=== PATIENT | male | born 1970 | race Caucasian/White ===

== ENCOUNTER 2021-01-27 02:57 | Outpatient (CLI) | payer BC, SELFPAY ==
[2021-01-27 08:57] LABS: Cholesterol 206 mg/dL (<200)
[2021-01-27 08:59] LABS: ALT 49 U/L (16-63); AST 29 U/L (15-37); Alkaline Phosphatase 47 U/L (46-116); Anion Gap 9.2 mmol/L (3-11); BUN 14 mg/dL (7-18); Bilirubin, Total 0.9 mg/dL (0.2-1.0); CO2 30.8 mmol/L (21.0-32.0); CREATININE 0.9 mg/dL (0.70-1.30); Calcium 8.1 mg/dL (8.5-10.1); Chloride 102 mmol/L (98-107); Glucose 105 mg/dL (74-106); Potassium 3.3 mmol/L (3.5-5.1); Sodium 142 mmol/L (136-145); Total Protein 7.3 g/dL (6.4-8.2)
== END 2021-01-27 02:58 | disposition home or self-care (01) ==
LOC: LBO 02:57
DX: Z00.00 Encounter for general adult medical examination without abnormal findings (principal); Z13.220 Encounter for screening for lipoid disorders
CPT/HCPCS: 36415; 80053; 82465

== ENCOUNTER 2021-06-02 12:10 | Day surgery (SDC) | payer BC, SELFPAY ==
--- NOTE | 2021-06-02 | DI.CT_ITS ---
Exam(s) CT ABDOMEN PELVIS W EXAM: CT ABDOMEN PELVIS W CLINICAL HISTORY: anal mass. TECHNIQUE: Imaging Protocol: Axial computed tomography images with coronal and sagittal reformatted images were created and reviewed CONTRAST MATERIAL: Intravenous: Omnipaque 100cc Oral: None COMPARISON: No exams were available for comparison FINDINGS: VISUALIZED LUNG BASES: No nodules nor pleural effusions evident. ABDOMEN: There is mild circumferential thickening of the distal esophagus at the GE junction. May be signific ant. There is no hiatal hernia evident. No evidence of varices at this level. There is no ascites LIVER: Liver is hypodense implying steatosis. In the upper right hepatic lobe there is a solitary 1. 4 by 1.0 cm enhancing finding which I suspect is a possible small hemangioma. GALLBLADDER/BILIARY: Slightly distended. No gallstones seen. No gallbladder wall edema. CBD is not dilated. PANCREAS: No evidence of pancreatic mass nor dilatation of the pancreatic duct. LYMPH NODES: There are some prominent retroperitoneal lymph nodes. the largest of these interposed b etween the portal vein and ivc and measuring 3.8 by 2 cm. there is also a 1.8 by 1.3 cm lymph node a navin the pancreatic neck between the splenic and common hepatic arteries. There does not appear to b e an obvious pancreatic mass. SPLEEN: Spleen is not enlarged. No obvious intrasplenic lesions. 2.2 x 2.1 cm benign splenule is no aliza medial to the spleen. The splenic and portal veins are patent. ADRENALS: There are no significant adrenal masses. KIDNEYS:No cysts evident. No solid renal masses. No calculi nor hydronephrosis.. ABDOMINAL AORTA: Abdominal aorta is not enlarged. There is no para-aortic adenopathy ABDOMINAL WALL: Anterior abdominal wall umbilical fat containing hernia with benign appearance. Does not contain bowel loops therein. GI: There is no evidence of bowel obstruction, free air, nor abscess. Lymph nodes: PELVIS: GI: No evidence of appendicitis.No evidence of sigmoid diverticulitis. LYMPH NODES: There is no intrapelvic nor inguinal adenopathy. REPRODUCTIVE: Prostate size upper normal. Seminal vesicles unremarkable. No obturator adenopathy. URINARY BLADDER: No calculi nor obvious masses evident OSSEOUS: No significant osseous lesions. Sacroiliac joints appear unremarkable. IMPRESSION: 1. There are multiple prominent retroperitoneal lymph nodes as described above. Spleen size is upper normal. Nevertheless cannot rule out the possibility of lymphoma here. There is no prominent para- aortic adenopathy. There is no significant intrapelvic adenopathy. 2. Hepatic steatosis. There is a 14 x 10 millimeter enhancing lesion in the liver which are suspect is probably a small hemangioma. RADIATION DOSE DELIVERED: 1,578.6mGy.cm Total DLP DATA REPOSITORY: All CT scans at this facility are submitted to the National Radiology Data Registry (NRDR) Dose Index Registry (DIR) with the [employer] ([employer]). RADIATION OPTIMIZATION: All CT scans at this facility use at least one of these dose optimization te chniques: automated exposure control; mA and/or kV adjustment per patient size (includes targeted exa ms where dose is matched to clinical indication); or iterative reconstruction.
[2021-06-02 12:15] VITALS: BP 156/86; PULSE 76; RESP 18; TEMP 36.3; O2SAT 97
[2021-06-02] MEDS: Lactated Ringers 1,000 ML 80 ML IV (12:46)
--- NOTE | 2021-06-02 13:12 | W.ANESPRE ---
General Info Date of Service Date Performed: 06/02/21 Height: 5 ft 8 in Weight: 121.5 kg Body Mass Index (BMI): 40.7 Surgical Procedure: Operation Date: 06/02/21 12:50 Proposed Procedures Side Surgeon leida Chan, DO Meds Allergies and Home Medications Allergies Allergy/AdvReac Type Severity Reaction Status Date / Time No Known Allergies Allergy Verified 06/02/21 12:24 Home Medication Medication Instructions Recorded potassium chloride 10 mEq 10 meq PO DAILY #30 tab 02/14/21 tablet,extended release hydrochlorothiazide 25 mg tablet 25 mg PO QAM #90 tab 05/16/21 amlodipine 10 mg tablet 10 mg PO DAILY #90 tab 05/17/21 lisinopril 30 mg tablet 30 mg PO DAILY #90 tab 05/17/21 bisacodyl 5 mg tablet,delayed 5 mg PO ONCE #4 tab 05/26/21 release polyethylene glycol 3350 17 238 g PO ONCE #238 g 05/26/21 gram/dose oral powder Current Visit Medications: Current Medications Generic Name Dose Route Start Last Admin Trade Name Freq PRN Reason Stop Dose Admin Hyoscyamine Sulfate 0.125 mg 06/02/21 10:41 Hyoscyamine 0.125 Mg Sl/Oral/Chew SL DIRECTED PRN Ringer's Solution 1,000 mls @ 80 mls/hr 06/02/21 06:00 06/02/21 12:46 IV 07/01/21 23:59 80 mls/hr INFUSION CLARITZA Administration IV Miscellaneous Supplies 1 each 06/02/21 06:00 Iv Access IV 07/01/21 23:59 DIRECTED CLARITZA Ondansetron HCl 4 mg 06/02/21 10:41 Ondansetron 4 Mg/2 Ml Vial IVP Q4H PRN PRN Nausea / Vomiting Sodium Chloride 0 ml 06/02/21 06:00 Normal Saline Flush 10 Ml Syr IV 07/01/21 23:59 PRN PRN Sodium Chloride 0 ml 06/02/21 06:00 Normal Saline 10 Ml Vial IJ 07/01/21 23:59 DIRECTED PRN Sterile Water 0 ml 06/02/21 06:00 Water,Injection,Sterile 10 Ml Vial IJ 07/01/21 23:59 DIRECTED PRN PFSH Active Problems Active Problems: Problem Status Onset Code Seasonal allergies J30.2 Hypokalemia E87.6 SRINIVASA on CPAP G47.33, Z99.89 Screening for skin condition Feeling grief F43.21 Skin cancer screening Z12.83 Colon cancer screening Z12.11 Screening cholesterol level Z13.220 Increased body mass index (BMI) R63.8 Essential hypertension I10 Annual physical exam Z00.00 Medical History Medical History (Updated 06/02/21 @ 12:23 by Sneha Heredia) Annual physical exam Colon cancer screening Essential hypertension Feeling grief Fracture, ankle Hypokalemia Increased body mass index (BMI) SRINIVASA on CPAP Started about 2011 - gets about 4 hr/night Patient new to facility Screening cholesterol level Screening for skin condition Seasonal allergies Skin cancer screening Tobacco Smoking/Tobacco Use Status: Former Tobacco Use Passive smoking exposure: No Alcohol Alcohol Intake: current Alcohol intake frequency: holidays/special occasions only Alcohol type: beer and wine Substance Use Substance use: Rarely Substance use type: marijuana Counseling given: No Counseling provided: none Vital Signs and Lab Results Vital Signs Most Recent Vital Signs in EMR: Most Recent Vital Signs Temp Pulse Resp BP Pulse Ox 36.3 C L 76 18 156/86 H 97 06/02/21 12:15 06/02/21 12:15 06/02/21 12:15 06/02/21 12:15 06/02/21 12:15 Lab Results Blood Type / Crossmatch: No Data to Display Complete Blood Count: No Data to Display Complete Metabolic Panel: No Data to Display Liver Function Panel: No Data to Display Coagulation Panel: No Data to Display Cardiac Panel: No Data to Display Arterial Blood Gas: No Data to Display Venous Blood Gas: No Data to Display Pancreas Panel: No Data to Display Thyroid Panel: No Data to Display Infectious Disease: No Data to Display Blood Cultures: No Data to Display Toxicology Panel: No Data to Display Anesthesia Assessment and Plan Anesthesia History Personal History: No History of Anesthesia Complications Family History: No Family History of Anesthesia Complications Exercise Tolerance Exercise Tolerance: Metabolic Equivalents>4 Pertinent Negatives Pertinent Negatives: No Symptoms of GERD Cardiac & Pulmonary Exam Cardiac Exam: Normal S1/S2 Heart Sounds Pulmonary Exam: Clear Bilateral Breath Sounds Airway Exam Known Difficult Airway: No Mallampati Class: 2 Mouth Opening: Normal (> 3cm) Thyromental Distance: Less than 3 cm Neck Range of Motion: Full ROM Neck Circumference: Thick Teeth Condition: Normal Dentition ASA Classification ASA Score: ASA 3 Emergency Case?: No NPO Status NPO Status: NPO Clears >2 hours, Solids >8 hours Anesthesia Plan Resuscitation Status: Full Code Anesthesia Technique: General Anesthesia Airway Planned: Natural Airway Monitors Used: Standard Monitors
[2021-06-02 13:26] VITALS: BMI 40.7
--- NOTE | 2021-06-02 14:35 | BOWEL_PTH ---
PATIENT: Froy Aguilar LOC: [facility] U#:[id number] AGE/SX: 51/M ROOM: RE06/02/[address]: Maliha Chan : 1970 BED: DIS: 06/02/2021 SPEC #: [id number] RECD: 06/02/21 16:46 STATUS: AMY REAmbika #: [id number] MYA: 06/02/21 14:[address]: Maliha Chan DEPT: Surgical Specimen RECD BY: Charisma Pepper ENTERED: 06/02/21 16:47 SP TYPE: Bowel OTHR DR: Suzy Hines APRN Tissues: 1 - BIOPSY BOWEL 2 - BIOPSY BOWEL 3 - BIOPSY BOWEL 4 - BIOPSY BOWEL 5 - BIOPSY BOWEL Procedures: GROSS AND MICRO LEVEL 4 Comments: [id number]
[2021-06-02] MEDS: Normal Saline Flush 10 ML SYR (14:41)
[2021-06-02 15:15] VITALS: BP 151/85; PULSE 72; RESP 16; TEMP 36.6; O2SAT 97
--- NOTE | 2021-06-02 15:15 | PDOC.DSDIS_ITS ---
Discharge Plan Disposition Patient Disposition: HOME Condition: Good Discharge Details Reason For Visit: colon scope Attending Provider: Maliha Chan Primary Care Provider: Suzy Hines Home Meds and New Rx's Prescriptions: New dibucaine 1 % ointment 1 applic NH QID PRN (Reason: rectal discomfort) Qty: 56 RF: 3 Continued potassium chloride 10 mEq tablet extended release 10 meq PO DAILY Qty: 30 RF: 1 hydrochlorothiazide 25 mg tablet 25 mg PO QAM Qty: 90 RF: 2 amlodipine 10 mg tablet 10 mg PO DAILY Qty: 90 RF: 3 lisinopril 30 mg tablet 30 mg PO DAILY Qty: 90 RF: 3 Discontinued polyethylene glycol 3350 17 gram/dose powder 238 g PO ONCE Qty: 238 RF: 0 bisacodyl [Dulcolax (bisacodyl)] 5 mg tablet,delayed release (DR/EC) 5 mg PO ONCE Qty: 4 RF: 0 Discharge Instructions Additional Instructions: DSU Colonoscopy Post- Op Instructions Instructions for Everyone who is given Anesthesia: For your safety, please do the following for the next twenty-four (24) hours: *Do Not operate a motor vehicle (car, truck, motorcycle, etc.) *Do Not drink alcoholic beverages or use any recreational drugs for the first 24 hours or while taking pain medications. The medications in your body may have a reaction that can be dangerous. *Do Not make any important decisions or sign any important papers. Findings: x3 polyps diverticula anal mass -No NSAID's/aspirin x5 days Home Care Instructions after Rectal Surgery Pain control: Tylenol 1000mg by mouth every 8 hours. Take pain meds continuously for the first 72hrs. After 72hrs, you can take as needed if you are having pain. Use dibucaine cream- topical for pain releif. Apply every 4hrs as needed for pain. How to prevent constipation: The first bowel movement after surgery will be painful. Do not let yourself get constipated. Stay on a stool softener for the first two weeks after surgery. It is recommended that you use a fiber supplement (Metamucil, Citrucel) daily (1 tablespoon in 8 oz of water). If you do not have a bowel movement daily, use Milk of Magnesia or Miralax. You may have bleeding or drainage after rectal surgery; especially when you move your bowels. Use a sanitary napkin to collect the discharge. If you are passing large clots or having to change the pad more than every 4 hours, call the clinic or go to the ER. You may experience spasms in the rectal muscles. This is normal after surgery and last for about two weeks. They can become more intense with bowel movements. The best remedy is to soak in a bathtub of plain warm water- no Epsom salts, essential oil or soap. It takes about 10 minutes further the spasm to stop. You may want to do this after BM as well. It is ok to shower. Avoid soap on the surgical area. Use a pillow to sit on. Follow a mild bland diet. Avoid alcohol, spicy food, citrus, and tomatoes. Avoid strenuous activity (running, jogging, and power walking, swimming, weight lifting) for two weeks. No lifting over 20 pounds for 2 weeks. Follow up: Dr. Chan 06/13 3pm. I will have the path reports adn we will go over all results and formulate a treatment plan. 2. After you arrive home you may have a light meal and return to your normal diet as you can tolerate it without feeling sick to your stomach. 3. You may have a bloated, gaseous feeling in your belly (abdomen) after a colonoscopy. Passing gas and belching will help. Walking or lying down on your left side with your knees flexed may relieve the discomfort. Call the office at [phone] (Office) or [phone] (Hospital) right away if you notice any of the following: a.Vomiting of blood or ?coffee ground stools?. b.Rectal bleeding 1Tbsp, blood clots or continuous bleeding. c.Severe belly (abdominal) pain. d.A hard distended belly (abdomen) and an inability to pass gas. 4. Please don?t expect to have a normal BM (bowel movement) for 2-3 days after your procedure. 5. If there are questions regarding the findings of your procedure, please contact your doctor 6. If you are unable to contact your doctor with a problem, contact the hospital at [phone]. 7. Continue all your regular medications unless directed otherwise. I understand the above instructions and have no questions. Signature of Patient or Adult Escort Name of Responsible Adult Escort Signature of Nurse Date/Time Stand Alone Forms: Eran Vaughn (MIGUELANGELU) Activity:: see above Diet:: see above Discharge Orders Discharge Orders: Discharge Order (Routine); Ordered 06/02/21 Ordered By: Maliha Chan DS: Diagnosis Discharge Diagnosis (1) Adenomatous polyps: Status: Acute (2) Diverticula of colon: Status: Acute (3) Bleeding external hemorrhoids: Status: Acute (4) Mass of anus: Status: Acute
[2021-06-02] MEDS: Breeza Beverage 473 ML BTL PO ×2 (15:21→15:22)
[2021-06-02] MEDS: Omnipaque 350 MG/ML 50 ML BTL PO (15:21)
--- NOTE | 2021-06-02 15:21 | W.ANESPOSTOP ---
Postoperative Evaluation Date, Time and Location Date Performed: 06/02/21 Time Performed: 15:22 Patient Location: Day Surgery Unit Vital Signs Most Recent Manually Entered Vital Signs: Adult Blood Pressure: 151/85 Heart Rate: 75 Respirations: 18 Oxygen Saturation (%): 94 Temperature (C): 36.6 C Pain Score (0-10 Scale): 3 Assessment Mental Status: Arousable with meaningful communication Airway and Respiratory Function: Patent airway with normal (patient baseline) respiratory exam Cardiovascular Function: Hemodynamically Stable Hydration Status: Adequately Hydrated Nausea & Vomiting: No Nausea or Vomiting Pain: Pain is tolerable per patient Peripheral Nerve Block: Patient did not receive a nerve block
[2021-06-02 15:22] VITALS: BP 151/85; PULSE 75; RESP 18; TEMPC 36.6; O2SAT 94
[2021-06-02 15:50] VITALS: BP 178/83; PULSE 64; RESP 18; TEMP 36.2; O2SAT 99
[2021-06-02 16:43] LABS: Abs Immature Grans 0.02 10^3/uL (0.0-0.06); Absolute Basophil Count 0.03 10^3/uL (0.0-0.2); Absolute Eosinophil Count 0.24 10^3/uL (0.0-0.7); Absolute Lymphocyte Count 1.75 10^3/uL (1.2-3.4); Absolute Monocyte Count 0.61 10^3/uL (0.1-0.8); Basophils % 0.3; Eosinophils % 2.7; HCT 38.1 % (40.0-50.0); HGB 13.3 g/dL (13.5-17.5); Immature Grans % 0.2; Lymphocytes % 19.3; MCH 29.4 pg (27.0-33.0); MCHC 34.9 % (32.0-36.0); MCV 84.1 fL (80-95); MPV 10.6 fL (8.0-11.0); Monocytes % 6.7; Neutrophils % 70.8; Nucleated RBC 0 %; Platelet Count 229 10^3/uL (130-400); RBC 4.53 10^6/uL (4.36-5.78); RDW 13.6 % (11.8-14.1); WBC 9.05 10^3/uL (4.4-10.8)
[2021-06-02 16:57] LABS: ALT 48 U/L (16-63); AST 28 U/L (15-37); Albumin 4.1 g/dL (3.4-5.0); Alkaline Phosphatase 41 U/L (46-116); Anion Gap 6.2 mmol/L (3-11); BUN 21 mg/dL (7-18); Bilirubin, Total 0.8 mg/dL (0.2-1.0); CO2 31.8 mmol/L (21.0-32.0); CREATININE 1.2 mg/dL (0.70-1.30); Calcium 8.8 mg/dL (8.5-10.1); Chloride 99 mmol/L (98-107); Glucose 122 mg/dL (74-106); Sodium 137 mmol/L (136-145); Total Protein 7.8 g/dL (6.4-8.2)
[2021-06-02 17:00] LABS: Potassium 2.8 mmol/L (3.5-5.1)
[2021-06-02] MEDS: Normal Saline - Diluent 50 ML VIAL IV (17:04)
[2021-06-02] MEDS: Omnipaque 350 MG/ML 100 ML BTL IJ (17:04)
[2021-06-02] MEDS: Normal Saline Flush 10 ML SYR IV (17:05)
[2021-06-02] MEDS: Acetaminophen 500 MG TAB 1000 MG PO (17:28)
--- NOTE | 2021-06-02 17:40 | DI.VRAD_ITS ---
Addendum created by Rebecca Pinto MD on 06/02/2021 6:47:02 PM EDT: THIS REPORT CONTAINS FINDINGS THAT MAY BE CRITICAL TO PATIENT CARE. The findings were verbally communicated via telephone conference with Maliha Chan at 6:46 PM EDT on 06/02/2021. The findings were acknowledged and understood. Initial report created on 06/02/2021 5:40:05 PM EDT: PROCEDURE INFORMATION: Exam: CT Abdomen And Pelvis With Contrast Exam date and time: 06/02/2021 3:16 PM Age: 51 years old Clinical indication: Other: Anal mass seen on colonoscopy today 06/02. ; Prior surgery; Surgery date: Post-operative (0-2 days); Surgery type: Colonoscopy 06/02 TECHNIQUE: Imaging protocol: Computed tomography of the abdomen and pelvis with contrast. Radiation optimization: All CT scans at this facility use at least one of these dose optimization techniques: automated exposure control; mA and/or kV adjustment per patient size (includes targeted exams where dose is matched to clinical indication); or iterative reconstruction. Contrast material: OMNIPAQUE 350; Contrast volume: 100 ml; Contrast route: INTRAVENOUS (IV); Other contrast: Oral, Omni 350, 50 ml + Breeza 800 ml, Omni 350, 50 ml + Breeza 800 ml; COMPARISON: No relevant prior studies available. FINDINGS: Mediastinal space: Some wall prominence to the distal esophagus which should be correlated with any concern for esophagitis. Liver: Hepatic steatosis. 1.5 cm rim enhancing lesion in the superior aspect of the liver, series 5, image 130; series 6, image 55. Small enhancing lesion in the superior aspect of the liver, 1 cm, series 4, image 17; series 6, image 77. Possible areas of focal fatty sparing along the gallbladder fossa. Gallbladder and bile ducts: No calcified gallstones identified. Pancreas: Normal pancreas. Spleen: Homogeneous spleen. Adrenal glands: Normal adrenal glands. Kidneys and ureters: No hydronephrosis. Stomach and bowel: No evidence of bowel obstruction. There is some wall prominence to the rectum which can be seen with underdistention or proctitis/pathology. The anal region is not well assessed secondary to underdistention. Appendix: Normal appendix. Intraperitoneal space: No free air. Vasculature: No abdominal aortic aneurysm. Lymph nodes: Prominent/enlarged periportal/peripancreatic lymph nodes measuring up to 1.2 cm in short axis. Urinary bladder: Urinary bladder wall prominence. This can be seen with infection or underdistention. Reproductive: Unremarkable as visualized. Bones/joints: Skeletal degenerative changes. Scoliosis. Soft tissues: The anterior subcutaneous soft tissues are incompletely imaged because they were not included in the field of view. Small fat containing umbilical hernia. IMPRESSION: 1. There is some wall prominence to the rectum which can be seen with underdistention or proctitis/pathology. The anal region is not well assessed secondary to underdistention. 2. Indeterminate enhancing lesions in the liver, worrisome for disease involvement. MRI, hepatic mass protocol, recommended for further evaluation. Given that one is ring shaped in appearance, findings should also be correlated with any concern for abscess. 3. Lymph node prominence/enlargement in the upper abdomen. Disease involvement not excluded. 4. Some wall prominence to the distal esophagus which should be correlated with any concern for esophagitis or other abnormality. Urinary bladder wall prominence which can be seen with infection or underdistention. Hepatic steatosis. Other findings/details as above. Dictated and Authenticated by: Rebecca Pinto MD. Ordering:MARIO Jett MD
--- NOTE | 2021-06-02 23:44 | W.COLOREPORT ---
Date of service: 06/02/21 Time of Service: 15:00 Colonoscopy Report Date of procedure: 06/02/21 Pre-op diagnosis general: crc screen Post-op diagnosis procedure note: other (ext hemorrhoids/rectal-anal mass (malig vs polyps) diverticular dx.) Surgeon: Maliha Chan Anesthesia Type: General:No Airway Estimated blood loss (mL): 2 Pathology: other Complications: None Disposition: same day Prep: Miralax/Dulcolax Retraction Time: 20cm Procedure Description: After informed consent was obtained the patient was taken to the procedure room and placed in a left decubitous position. Monitors were applied and a time out was done. The patients name, date of , procedure, allergies to medications and metal in their body was reviewed. The patient was then sedated. Once sedated and comfortable a rectal exam was done. External exam shows ext hemorrhoids (they are not inflammed or thrombosed) & multiple tags. Internal exam revealed a normal sphincter, there is a mass present- 5oclock position. The scope was then introduced and retrofelexed. Mass at the anal-rectal junction (pt has significant pain after the polyp removal). The scope was then advanced to the cecum w/out difficulty. The TI and appendiceal orifice were identified. The prep was adequate- there was adherent stool to the colon coelho- this is extensively lavged, . The scope was then slowly retracted over 20. minutes back into the rectum. He at 90 cm he has a flat 0.8 cm polyp. This was injected with saline to raise it and then removed with a combination of a hot snare and hot forceps. All specimens are retrieved and no bleeding is noted. A clip was placed across the defect. At 60 cm he has a 1 cm polyp that is on a small stalk. This is removed with a hot snare. In has not 2 additional 5 mm flat polyps at 40 cm and in the rectum. These are removed with cold biting forcep. He has a anal lesion that is discovered by BRITTANY, and seen upon retroflexion. It definitely has the characteristics of adenomatous polyp, and because of the size I would be concerned that there is a malignancy within this. It Is very painful for the patient to have this removed indicating that we are near the sphincters and the nerves. I was not able to remove the entirety of the lesion. When I did remove is about 1.5 cm, using a hot snare. this is sent out for pathological evaluation. There is no bleeding noted. The scope was removed and the patient was woken up and taken back to Same day surgery in stable condition. The patient tolerated the procedure well and there were no immediate complications. Follow up: The patient should follow up in my office on June 13 and we will review the CT and biopsy findings.
[2021-06-05 09:24] LABS: CEA <2.0 ng/mL (See Note)
== END 2021-06-02 17:50 | disposition home or self-care (01) ==
PROVIDERS: Visit Provider Surgery
PROC: 0DJD8ZZ Inspection of Lower Intestinal Tract, Via Natural or Artificial Opening Endoscopic (ICD-10-PCS; CPT 45378; principal; 2021-06-02 12:45)
DX: Z12.11 Encounter for screening for malignant neoplasm of colon (principal); D12.0 Benign neoplasm of cecum; D12.6 Benign neoplasm of colon, unspecified; K62.9 Disease of anus and rectum, unspecified; K62.1 Rectal polyp; A63.0 Anogenital (venereal) warts; K57.30 Diverticulosis of large intestine without perforation or abscess without bleeding; K64.4 Residual hemorrhoidal skin tags; K63.5 Polyp of colon; G47.33 Obstructive sleep apnea (adult) (pediatric); I10 Essential (primary) hypertension
CPT/HCPCS: 45385; 45381; 45380; 80053; 88305; 74177; 82378; 85025; J2001; J2704; J3490; Q9967

== ENCOUNTER 2021-06-22 01:50 | Outpatient (CLI) | payer BC, SELFPAY ==
--- NOTE | 2021-06-22 15:07 | DI.US_ITS ---
APPROVED REPORT EXAM: Comprehensive 2D, Doppler, and color-flow Echocardiogram Patient Location: Out-Patient Manager Exchange: Kirstie Owens RDCS (AE) Indications: Pre operative, Elevated lipid, HTN Other Information Study Quality: Adequate Conclusion Left Ventricle : The left ventricle is normal size. The left ventricular systolic function is normal. The left ventricular ejection fraction is within the normal range. Mild concentric left ventricular hypertrophy. There is normal LV segmental wall motion. The left ventricular diastolic function is nor mal. LVEF is 60-65%. Right Ventricle : The right ventricle is normal size. The right ventricular systolic function is norm al. Atria : The left atrium size is normal. The right atrium size is normal. Tricuspid Valve : The tricuspid valve is normal in structure. Trace tricuspid regurgitation. Unable t o assess PA pressure. There is no tricuspid valve stenosis. Great Vessels : The aortic root is normal in size. The ascending aorta is normal in size. Aortic arch is normal in caliber. IVC is normal in size and collapses >50% with inspiration. Wall motion Left Ventricle The left ventricle is normal size. The left ventricular systolic function is normal. The left ventric ular ejection fraction is within the normal range. Mild concentric left ventricular hypertrophy. Ther e is normal LV segmental wall motion. The left ventricular diastolic function is normal. There is no ventricular septal defect visualized. LVEF is 60-65%. Right Ventricle The right ventricle is normal size. The right ventricular systolic function is normal. Atria The left atrium size is normal. The right atrium size is normal. The interatrial septum is intact wit h no evidence for an atrial septal defect. Aortic Valve The aortic valve is normal in structure. There is no aortic valvular stenosis. No aortic regurgitatio n is present. Mitral Valve The mitral valve is normal in structure. No evidence of mitral valve stenosis. Trace mitral regurgita tion. Tricuspid Valve The tricuspid valve is normal in structure. There is no tricuspid valve stenosis. Trace tricuspid reg urgitation. Unable to assess PA pressure. Pulmonic Valve The pulmonary valve is normal in structure. There is no pulmonic valvular stenosis. There is no pulmo junior valvular regurgitation. Great Vessels The aortic root is normal in size. The ascending aorta is normal in size. Aortic arch is normal in ca liber. IVC is normal in size and collapses >50% with inspiration. Pericardium There is no pericardial effusion. 2D Dimensions IVSD d PLAX 1.23 cm M: 0.6-1.2 LV Vol A2C d MOD 119.0 mL LVPW d PLAX 1.22 cm M: 0.6 - 1.2 LV Vol A4C d MOD 130.8 mL LVID d PLAX 4.62 cm M: 4.2 - 5.8 LA vol/ BSA A2C s A-L 28.9 mL/m2 LVDs 3.15 cm M: 2.5 - 4.0 LA vol/ BSA A4C s A-L 22.2 mL/m2 Ao Root d 2.67 cm M: 3.1 - 3.7 LA Vol/ BSA Biplane s A-L 26.0 mL/m2 RA Area A4C 14.52 cm2 LA Area A4C s MOD 17.92 cm2 RA Vol/ BSA A4C s A-L 13.2 mL/m2 LA Area A2C s MOD 20.94 cm2 Ao Asc Diam d 3.23 cm M: 2.6 - 3.4 LV EF A4C MOD 65.9 % LV EF Teichholz 59.1 % LV EF A2C MOD 59.7 % LVEF ([facility]) 59.87 % M: 52 - 72 LV EF Biplane MOD 59.9 % LV Volume 91.59 mL M: 62 - 150 SV 76.47 mL LV Volume Index 39.82 mL/m2 M: 34 - 74 SV Index 33.20 mL/m2 LV Vol Biplane MOD 127.7 mL FS 31.25 % M-Mode TAPSE 3.20 cm (M/F) >1.7 LV Diastology MV E' medial 0.053 (>0.07 m/s) E/A Ratio 0.8 LV E/e MED 11.80 (<14) MV E Vmax 0.62 (0.4-1.3 m/s) MV E' lateral 0.090 (>0.1 m/s) MV A Vmax 0.80 (0.4-1.3 m/s) LV E/e LAT 6.85 (<14) MV E/A Ratio 0.76 MV E/E' medial 11.81 MV E/E' lateral 6.86 Aortic Valve LVOT Area 2.97 cm2 AoV Area Vmax 2.56 cm2 LVOT Vmax 1.35 m/s AoV Area/ BSA (Vmax) 1.11 cm2/m2 LVOT Mean Inocente. 0.78 m/s BRIANDA Mean Inocente. 2.12 cm2 LVOT Peak Grad 7.3 mmHg BRIANDA Mean Inocente. Index 0.92 cm2/m2 LVOT Mean Grad 3.0 mmHg LVOT VTI 0.271 m LVOT Diam s 1.90 cm AoV Vmax 1.56 m/s Velocity Ratio 0.86 AoV Mean Inocnete. 1.09 m/s AoV Peak Grad 9.7 mmHg LVOT SV 80.71 mL AoV Mean Grad 5.3 mmHg AoV VTI 0.295 m AoV Area VTI 2.74 cm2 AoV Area/ BSA (VTI) 1.19 cm/m2 Mitral Valve MV DT 322 (160-240 msec) MV PHT 93 msec MV Area PHT 2.36 cm2 MV VTI 0.264 m MV Area VTI 3.06 (4.0-6.0 cm2) Pulmonary Valve PV Vmax 1.74 (0.5-1.5 m/s) RVOT Peak Gr. 4.29 mmHg PV Peak Grad 12.2 mmHg RVOT Mean Gr. 1.80 mmHg PV Mean Grad 5.0 mmHg RVOT VTI 0.203 m PV VTI 0.280 m RVOT Vmax 1.04 m/s
== END 2021-06-22 02:10 ==
PROVIDERS: Visit Provider Surgery
DX: G47.33 Obstructive sleep apnea (adult) (pediatric) (principal); I10 Essential (primary) hypertension; K62.89 Other specified diseases of anus and rectum; R63.8 Other symptoms and signs concerning food and fluid intake; Z99.89 Dependence on other enabling machines and devices; Z01.818 Encounter for other preprocedural examination; E78.5 Hyperlipidemia, unspecified; E66.9 Obesity, unspecified
CPT/HCPCS: 93306

== ENCOUNTER 2021-07-03 02:46 | Outpatient (CLI) | payer BC, SELFPAY ==
[2021-07-03 12:28] LABS: Source Nasal/Nares
[2021-07-03 15:35] LABS: COVID-19 PCR Negative (Negative)
== END 2021-07-03 02:47 | disposition home or self-care (01) ==
LOC: LBO 02:46
PROVIDERS: Visit Provider Surgery
DX: Z20.822 Contact with and (suspected) exposure to COVID-19 (principal); Z01.818 Encounter for other preprocedural examination
CPT/HCPCS: 87635

== ENCOUNTER 2021-07-04 07:34 | Day surgery (SDC) | payer BC, SELFPAY ==
[2021-07-04] VITALS (7 sets, daily range): BP systolic 151–180; BP diastolic 65–90; PULSE 62–75; RESP 14–18; TEMP 36.2–36.8; O2SAT 96–100; BMI 42.4
--- NOTE | 2021-07-04 04:53 | W.ANESPRE ---
General Info Date of Service Date Performed: 07/04/21 Height: 5 ft 8 in Weight: 126.552 kg Body Mass Index (BMI): 42.4 Surgical Procedure: Operation Date: 07/04/21 09:55 Proposed Procedures Side Surgeon p Fulguration of anal condyloma Maliha Chan, Meds Allergies and Home Medications Allergies Allergy/AdvReac Type Severity Reaction Status Date / Time No Known Allergies Allergy Verified 07/04/21 07:48 Home Medication Medication Instructions Recorded hydrochlorothiazide 25 mg tablet 25 mg PO QAM #90 tab 05/16/21 amlodipine 10 mg tablet 10 mg PO DAILY #90 tab 05/17/21 lisinopril 30 mg tablet 30 mg PO DAILY #90 tab 05/17/21 dibucaine 1 applic [place] QID PRN #56 g 06/02/21 potassium chloride 10 mEq 10 meq PO DAILY #30 tab 06/06/21 tablet,extended release dibucaine 1 % rectal ointment 1 applic [place] QID PRN #56 g 06/13/21 Current Visit Medications: Current Medications Generic Name Dose Route Start Last Admin Trade Name Freq PRN Reason Stop Dose Admin Ringer's Solution 1,000 mls @ 80 mls/hr 07/04/21 06:00 IV 08/02/21 23:59 INFUSION CLARITZA IV Miscellaneous Supplies 1 each 07/04/21 06:00 Iv Access IV 08/02/21 23:59 DIRECTED CLARITZA Sodium Biphosphate/Sodium Phosphate 133 ml 07/04/21 06:00 Na Phosphate Enema 133 Ml Btl AZ 07/04/21 16:00 PREOP CLARITZA Sodium Chloride 0 ml 07/04/21 06:00 Normal Saline Flush 10 Ml Syr IV 08/02/21 23:59 PRN PRN Sodium Chloride 0 ml 07/04/21 06:00 Normal Saline 10 Ml Vial IJ 08/02/21 23:59 DIRECTED PRN Sterile Water 0 ml 07/04/21 06:00 Water,Injection,Sterile 10 Ml Vial IJ 08/02/21 23:59 DIRECTED PRN PFSH Active Problems Active Problems: Problem Status Onset Code Condyloma acuminatum ~05/2021 A63.0 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 Tubular adenoma ~05/2021 D36.9 Serrated adenoma of colon ~05/2021 D12.6 Colon polyp, hyperplastic ~05/2021 K63.5 Mass of right lobe of liver R16.0 Mass of anus K62.89 Bleeding external hemorrhoids K64.4 Diverticula of colon K57.30 Adenomatous polyps D36.9 Seasonal allergies J30.2 Hypokalemia E87.6 SRINIVASA on CPAP G47.33, Z99.89 Screening for skin condition Feeling grief F43.21 Skin cancer screening Z12.83 Colon cancer screening Z12.11 Screening cholesterol level Z13.220 Increased body mass index (BMI) R63.8 Essential hypertension I10 Annual physical exam Z00.00 Medical History Medical History Annual physical exam Colon cancer screening Essential hypertension Feeling grief Fracture, ankle Hypokalemia Increased body mass index (BMI) SRINIVASA on CPAP Started about 2011 - gets about 4 hr/night Patient new to facility Screening cholesterol level Screening for skin condition Seasonal allergies Skin cancer screening Surgical History Surgical History (Updated 07/04/21 @ 07:49 by Sneha Heredia) History of colonoscopy (~05/2021) Status post ORIF of fracture of ankle Tobacco Smoking/Tobacco Use Status: Former Tobacco Use Passive smoking exposure: No Alcohol Alcohol Intake: current Alcohol intake frequency: holidays/special occasions only Alcohol type: beer and wine Substance Use Substance use: Rarely Substance use type: marijuana Counseling given: No Counseling provided: none Vital Signs and Lab Results Lab Results Blood Type / Crossmatch: No Data to Display Complete Blood Count: No Data to Display Complete Metabolic Panel: No Data to Display Liver Function Panel: No Data to Display Coagulation Panel: No Data to Display Cardiac Panel: No Data to Display Arterial Blood Gas: No Data to Display Venous Blood Gas: No Data to Display Pancreas Panel: No Data to Display Thyroid Panel: No Data to Display Infectious Disease: Coronavirus (COVID-19)(PCR) Negative (Negative) 07/03/21 08:39 07/03/21 Coronavirus 2019 Source Nasal/Nares 07/03/21 08:39 07/03/21 Blood Cultures: No Data to Display Toxicology Panel: No Data to Display Imaging and Studies Imaging and Studies Echocardiogram Summary: 06/22/21: Left Ventricle : The left ventricle is normal size. The left ventricular systolic function is normal. The left ventricular ejection fraction is within the normal range. Mild concentric left ventricular hypertrophy. There is normal LV segmental wall motion. The left ventricular diastolic function is normal. LVEF is 60-65%. Right Ventricle : The right ventricle is normal size. The right ventricular systolic function is normal. Atria : The left atrium size is normal. The right atrium size is normal. Tricuspid Valve : The tricuspid valve is normal in structure. Trace tricuspid regurgitation. Unable to assess PA pressure. There is no tricuspid valve stenosis. Anesthesia Assessment and Plan Anesthesia History Personal History: No History of Anesthesia Complications Family History: No Family History of Anesthesia Complications Exercise Tolerance Exercise Tolerance: Metabolic Equivalents>4 Pertinent Negatives Pertinent Negatives: No Symptoms of GERD (Rare, no symptoms today), No Major Cardiovascular Symptoms or Complaints, No Major Pulmonary Symptoms or Complaints and No History of CVA/TIA Cardiac & Pulmonary Exam Cardiac Exam: Normal S1/S2 Heart Sounds Pulmonary Exam: Clear Bilateral Breath Sounds Airway Exam Known Difficult Airway: No Mallampati Class: 3 Mouth Opening: Normal (> 3cm) Thyromental Distance: Less than 3 cm Facial Hair: Full Ferguson Neck Range of Motion: Full ROM Neck Circumference: Thick Teeth Condition: Normal Dentition ASA Classification ASA Score: ASA 3 Emergency Case?: No NPO Status NPO Status: NPO Clears >2 hours, Solids >8 hours Anesthesia Plan Resuscitation Status: Full Code Anesthesia Technique: Spinal Anesthesia Airway Planned: Natural Airway Monitors Used: Standard Monitors Preoperative Comments:: 51 yo male for condyloma removal. Hx of HTN (amlodipine, hydrochlorothiazide, and lisinopril), and increased BMI. Prone. Plan saddle spinal. GETA backup.
[2021-07-04] MEDS: Lactated Ringers 1,000 ML 80 ML IV (08:35)
--- NOTE | 2021-07-04 09:32 | W.PM.OP ---
Date of service: 07/04/21 Time of Service: 09:32 Operative Note Operative Note DATE OF PROCEDURE: 07/04/21 PRE-OP DIAGNOSIS: rectal condyloma & excision x3 anal tags POST-OP DIAGNOSIS: same PROCEDURE: fulgeration condyloma SURGEON: Maliha Chan JAVA [id number] SOFTWARE ENGINEER: Reny Garcia ANESTHESIA TYPE: Local By Surgeon and General LMA/ETT Refer to Anesthesia Record ESTIMATED BLOOD LOSS: 3 PATHOLOGY: other COMPLICATIONS: None Patient was transported to: PACU Patient's condition: stable Procedure Description: Patient is here today for fulguration of anal condyloma. Informed consent is obtained explaining risks and benefits of the procedure including not limited to bleeding, infection, damage to the sphincters resulting in stenosis or loss of control and complications from the anesthesia and recurrence. Patient is brought to the operative room suite. Anesthesia is administered per the department of anesthesia. Patient is placed in the prone position with all bony surfaces padded. Patient is prepped and draped in the usual sterile fashion using a Betadine scrub solution. Timeout is performed. He has 3 small external skin tags that are is excised with electrocautery. These are sent for pathology. A Galan retractor is used for visualization. He has a large mass at the 3 o'clock position right at the sphincters. This is grasped with an Allis and excised. We are not down to the sphincters. The remaining tissue is fulgurated. Dibucaine impregnated Gelfoam was inserted into the rectum. There is no bleeding noted. Patient tolerated procedure well without complication and transferred to recovery room in stable condition. This document was created using voice activated software
--- NOTE | 2021-07-04 09:33 | W.PM.DSUDISC ---
Discharge Plan Disposition Patient Disposition: HOME Condition: Good Discharge Details Attending Provider: Maliha Chan Primary Care Provider: Suzy Hines Home Meds and New Rx's Prescriptions: New tramadol [Ultram] 50 mg tablet 50 mg PO Q6H PRNQty: 14 RF: 0 celecoxib [Celebrex] 200 mg capsule 200 mg PO BID PRNQty: 60 RF: 2 docusate sodium [Colace] 100 mg capsule 100 mg PO BID Qty: 30 RF: 0 Metamucil 3.4 gram/5.4 gram powder 1 tbsp PO DAILY Qty: 660 RF: 6 Continued hydrochlorothiazide 25 mg tablet 25 mg PO QAM Qty: 90 RF: 2 dibucaine 1 % ointment 1 applic [place] QID PRN (Reason: rectal discomfort) Qty: 56 RF: 6 amlodipine 10 mg tablet 10 mg PO DAILY Qty: 90 RF: 3 lisinopril 30 mg tablet 30 mg PO DAILY Qty: 90 RF: 3 potassium chloride 10 mEq tablet extended release 10 meq PO DAILY Qty: 30 RF: 6 dibucaine 1 % ointment 1 applic [place] QID PRN (Reason: rectal discomfort) Qty: 56 RF: 3 Discharge Instructions Additional Instructions: Home Care Instructions after Rectal Surgery Pain control: Take Celebrex 200mg every 12 hrs and Tylenol 1000mg every 8 hours. Take pain meds continuously for the first 72hrs. After 72hrs, you can take as needed if you are having pain. Use ultram for breakthrough pain/pain >7. How to prevent constipation: The first bowel movement after surgery will be painful. Do not let yourself get constipated. Stay on a stool softener for the first two weeks after surgery. -Take a dose of Metamucil daily starting today-07/04. -Take a dose of Milk of Magnesia in am 07/05. -If you do not have a bowel movement daily, use Milk of Magnesia or Miralax. You will have bleeding or drainage after rectal surgery; especially when you move your bowels. Use a sanitary napkin to collect the discharge. If you are passing large clots or having to change the pad more than every 4 hours, call the clinic or go to the ER. You may experience spasms in the rectal muscles. This is normal after surgery and last for about two weeks. They can become more intense with bowel movements. The best remedy is to soak in a bathtub of plain warm water- no Epsom salts, essential oil or soap. It takes about 10 minutes for the spasms to stop. You may want to do this after BM as well. It is ok to shower. Avoid soap on the surgical area. Use a pillow to sit on. Follow a mild bland diet. Avoid alcohol, spicy food, citrus, and tomatoes. Avoid strenuous activity (running, jogging, and power walking, swimming, weight lifting) for two weeks. No lifting over 20 pounds for 2 weeks. Activity:: see above Remove Dressings/Wound Care:: 24 hours Shower/Bathe:: 24 hours Diet:: Carb Counting DS: Diagnosis Discharge Diagnosis (1) Anal condyloma: Status: Acute
--- NOTE | 2021-07-04 10:45 | ANUSTAG_PTH ---
PATIENT: Froy Aguilar LOC: [facility] U#:[id number] AGE/SX: 51/M ROOM: RE07/04/[address]: Maliha Chan : 1970 BED: DIS: 07/04/2021 SPEC #: [id number] RECD: 07/04/21 12:31 STATUS: AMY REQ #: [id number] MYA: 07/04/21 10:[address]: Maliha Chan DEPT: Surgical Specimen RECD BY: Charisma Pepper ENTERED: 07/04/21 12:32 SP TYPE: Anus Tag OT DR: Suzy Hines APRN Tissues: 1 - ANUS TAG 2 - BIOPSY BOWEL Procedures: GROSS AND MICRO LEVEL 4 Comments: [id number]
[2021-07-04] MEDS: Dibucaine 1% 28 GM TUBE (11:08)
[2021-07-04] MEDS: Gelatin SPONGE 12-7 MM PKT 1 EACH TP (11:09)
[2021-07-04] MEDS: Bupivacaine 0.25% Pres-Free 30 ML VIAL (11:11)
[2021-07-04] MEDS: Bupivacaine LIPOSOME/PF 133 MG/10 ML VIAL IJ (11:11)
--- NOTE | 2021-07-04 11:58 | W.ANESPOSTOP ---
Postoperative Evaluation Date, Time and Location Date Performed: 07/04/21 Time Performed: 11:58 Patient Location: Day Surgery Unit Vital Signs Most Recent Imported Vital Signs: Most Recent Vital Signs Temp Pulse Resp BP Pulse Ox 36.3 C L 75 18 157/88 H 98 07/04/21 11:25 07/04/21 11:25 07/04/21 11:25 07/04/21 11:25 07/04/21 11:25 Pain Score Most Recent Pain Score: Most Recent Pain Score Pain Level 0 07/04/21 11:25 Assessment Mental Status: Awake (Alert & Oriented to Patient Baseline) Airway and Respiratory Function: Patent airway with normal (patient baseline) respiratory exam Cardiovascular Function: Hemodynamically Stable Hydration Status: Adequately Hydrated Nausea & Vomiting: No Nausea or Vomiting Pain: Pt. Denies Any Pain Peripheral Nerve Block: Patient did not receive a nerve block
== END 2021-07-04 13:00 | disposition home or self-care (01) ==
PROVIDERS: Visit Provider Surgery
PROC: (CPT 17110; principal; 2021-07-04 09:45)
DX: A63.0 Anogenital (venereal) warts (principal); G47.33 Obstructive sleep apnea (adult) (pediatric); I10 Essential (primary) hypertension; K64.4 Residual hemorrhoidal skin tags
CPT/HCPCS: 46922; 46230; 88305; 88304; J2250

== ENCOUNTER 2021-07-26 01:45 | Outpatient (CLI) | payer BC, SELFPAY ==
[2021-07-26] MEDS: Gadoterate meglumine 20 ML VIAL IVP (08:43)
--- NOTE | 2021-07-26 09:00 | DI.MRI_ITS ---
Exam(s) MR ABDOMEN WO/W EXAM: MR ABDOMEN WO/W CLINICAL HISTORY: abnl CT/liver mass AND ANUS MASS,ANAL CA,K62.89,R16.0 TECHNIQUE: Multiplanar multisequence MRI was performed with both pre and post contrast infused seque nces. Contrast injected sequences were performed following IV injection of cc of Dotarem. COMPARISON: CT CT ABDOMEN PELVIS W from 06/02/[address] ABDOMEN PELVIS W from 06/02/2021 FINDINGS: VISUALIZED LUNG BASES: No pleural effusions evident. There is no ascites evident. LIVER: Liver exhibits decreasing signal on out of phase imaging, consistent with steatosis. There ar e 2 discrete similar appearing well-defined lesions in the superior aspect of the right hepatic lobe, one of these corresponding to what was seen on recent CT scan. The larger of these two findings lauren sure approximately 14 x 10 millimeters. Following contrast injection both these benign-appearing les ions enhance uniformly and rapid fashion and thereafter retain contrast for the 15 minutes post contr ast injection duration of the study. These are most probably benign hemangiomas. BILIARY: There are multiple tiny densities in the gallbladder lumen which are probably small calculi. Gallbladder wall is not edematous. The CBD is not dilated. PANCREAS: There is no evidence of pancreatic mass nor dilatation of the pancreatic duct. LYMPH NODES: The previously described somewhat prominent retroperitoneal lymph nodes are again noted, unchanged in size from the CT scan of 06/03/2021, the largest of these again noted to be interposed between the portal vein and IVC and measuring 3.7 x 1.9 cm. The other lymph node between the splenic and common hepatic arteries above the pancreatic neck is also unchanged in size. No new additional lymphadenopathy evident. Also no para-aortic adenopathy. No new mesenteric masses. SPLEEN: Spleen size is normal.There is a tiny 3 millimeter cyst in the posterior aspect of the spleen 2.2 x 2.1 cm splenule noted just medial to the spleen, exhibiting similar signal and post infusion a ppearance when compared to the [place] spleen. ADRENALS: There are no significant adrenal masses. KIDNEYS: No solid renal masses. No hydronephrosis.No cysts evident. ABDOMINAL AORTA: Not enlarged and there is no significant para-aortic adenopathy. ANTERIOR ABDOMINAL WALL/GI: There is no evidence of significant anterior abdominal wall hernia in the field of view of this study.Is no evidence of obvious bowel obstruction. OSSEOUS: There are no lytic osseous lesions in the field of view of this study. IMPRESSION: 1. There are 2 similar appearing small lesions in superior aspect of the right hepatic lobe, 1 of the se corresponding to what was described on the recent CT scan. These have the appearance of probable small benign hemangiomas. However, given that they do not exhibit typical centripetal enhancement pa ttern of hemangiomas (probably because they are small) I recommend repeat study in 6 months to ensure stability. 2. There is no evidence of pancreatic mass nor dilatation pancreatic duct. However, the previously d escribed somewhat enlarged lymph nodes in this region are again noted, as evident on the recent CT sc an.. There is no splenomegaly. 3. Tiny signal foci are noted in the gallbladder lumen which are probably tiny gallstones. There is no evidence of acute cholecystitis nor dilatation of the biliary tree. There are no calculi evident within the nondilated CBD. DATA REPOSITORY:
== END 2021-07-26 02:05 ==
PROVIDERS: Visit Provider Surgery
DX: G47.33 Obstructive sleep apnea (adult) (pediatric) (principal); I10 Essential (primary) hypertension; K62.89 Other specified diseases of anus and rectum; R16.0 Hepatomegaly, not elsewhere classified; R63.8 Other symptoms and signs concerning food and fluid intake; Z99.89 Dependence on other enabling machines and devices; K76.9 Liver disease, unspecified
CPT/HCPCS: 74183

== ENCOUNTER 2021-09-04 03:00 | Outpatient (CLI) | payer BC, SELFPAY ==
[2021-09-04 08:48] LABS: Hemoglobin A1C 5.2 % (<5.7)
== END 2021-09-04 03:01 | disposition home or self-care (01) ==
LOC: LBO 03:00
PROVIDERS: Visit Provider Surgery
DX: E87.6 Hypokalemia (principal); I10 Essential (primary) hypertension; R63.8 Other symptoms and signs concerning food and fluid intake; Z13.1 Encounter for screening for diabetes mellitus; Z13.220 Encounter for screening for lipoid disorders
CPT/HCPCS: 36415; 83036; 84132

== ENCOUNTER 2022-03-29 00:16 | Outpatient (CLI) | payer BC, SELFPAY ==
[2022-03-29 08:24] LABS: ALT 50 U/L (16-63); AST 24 U/L (15-37); Alkaline Phosphatase 49 U/L (46-116); Anion Gap 8.9 mmol/L (3-11); BUN 16 mg/dL (7-18); Bilirubin, Total 0.5 mg/dL (0.2-1.0); CO2 32.1 mmol/L (21.0-32.0); CREATININE 0.8 mg/dL (0.70-1.30); Calcium 8.2 mg/dL (8.5-10.1); Calculated LDL 137 mg/dL (<100); Chloride 101 mmol/L (98-107); Cholesterol 205 mg/dL (<200); Glucose 121 mg/dL (74-106); HDL Cholesterol 46 mg/dL (40-60); Sodium 142 mmol/L (136-145); Total Protein 7.6 g/dL (6.4-8.2); Triglyceride 114 mg/dL (<150)
[2022-03-29 08:31] LABS: Potassium 2.9 mmol/L (3.5-5.1)
[2022-03-29] MEDS: Gadoterate meglumine 20 ML VIAL IVP (08:35)
--- NOTE | 2022-03-29 09:00 | DI.MRI_ITS ---
Exam(s) MR ABDOMEN WO/W EXAM: MR ABDOMEN WO/W CLINICAL HISTORY: F/U ABNL CT,MASS RT LOBE OF LIVER,R16.0. TECHNIQUE: Multiplanar multisequence MRI was performed. COMPARISON: No exams were available for comparison FINDINGS: MR examination of the upper abdomen was performed according to the usual hepatic protocol including m ulti phasic T1 weighted postcontrast imaging. A previously described 14 millimeter in diameter mass of the dome of the liver is again seen, unchanged in appearance comparison with examination of Septem 2020. This again shows enhancement isointense with blood vessels on all phases consistent with h epatic hemangioma, as well as homogeneous high signal on T2 weighted images, also consistent with hep atic hemangioma. An additional small high signal nodule seen on prior examination is not visualized on today's examination. No new mass in the liver or spleen. A tiny presumed splenic cyst is again noted and unchanged. Pancreas and biliary system unremarkable. Adrenals and kidneys unremarkable. Abdominal aorta is of normal diameter. No retroperitoneal adenopathy. IMPRESSION: Stable hepatic lesion since July 2021. Findings are consistent with hepatic hemangioma. No add itional follow-up recommended. DATA REPOSITORY:
== END 2022-03-29 00:36 ==
PROVIDERS: Visit Provider Surgery
DX: R16.0 Hepatomegaly, not elsewhere classified (principal); K76.89 Other specified diseases of liver; D18.03 Hemangioma of intra-abdominal structures; E87.6 Hypokalemia; I10 Essential (primary) hypertension
CPT/HCPCS: 74183; 80053; 80061

== ENCOUNTER 2022-04-05 03:46 | Outpatient (CLI) | payer BC, SELFPAY ==
[2022-04-05 08:25] LABS: CREATININE 0.9 mg/dL (0.70-1.30); Potassium 3.6 mmol/L (3.5-5.1)
== END 2022-04-05 03:47 | disposition home or self-care (01) ==
LOC: LBO 03:46
PROVIDERS: Surgery; Visit Provider Family Medicine
DX: I10 Essential (primary) hypertension (principal)
CPT/HCPCS: 36415; 82565; 84132

== ENCOUNTER 2022-07-31 07:17 | Day surgery (SDC) | payer BC, SELFPAY ==
--- NOTE | 2022-07-30 21:51 | W.PM.DSUDISC ---
Discharge Plan Disposition Patient Disposition: HOME Condition: Good Discharge Details Reason For Visit: colon scope Attending Provider: Maliha Chan Primary Care Provider: Suzy Hines Home Meds and New Rx's Prescriptions: Continued potassium chloride 20 mEq tablet extended release 20 meq PO BID Qty: 180 3RF lisinopril 30 mg tablet 30 mg PO DAILY Qty: 90 3RF amlodipine 10 mg tablet 10 mg PO DAILY Qty: 90 3RF Rx Instructions: hydrochlorothiazide 12.5 mg tablet 12.5 mg PO QAM Qty: 90 3RF atorvastatin 20 mg tablet 20 mg PO QPM Qty: 90 3RF Discontinued bisacodyl [Dulcolax (bisacodyl)] 5 mg tablet,delayed release (DR/EC) 5 mg PO ONCE Qty: 4 0RF Rx Instructions: Take according to provider's instructions for colonoscopy prep. polyethylene glycol 3350 17 gram/dose powder 17 g PO ONCE Qty: 238 0RF Rx Instructions: To be taken as directed by prescriber's office for colonoscopy prep. Discharge Instructions Additional Instructions: DSU Colonoscopy Post-Op Instructions Instructions for Everyone who is given Anesthesia: For your safety, please do the following for the next twenty-four (24) hours: *Do Not operate a motor vehicle (car, truck, motorcycle, etc.) *Do Not drink alcoholic beverages or use any recreational drugs for the first 24 hours or while taking pain medications. The medications in your body may have a reaction that can be dangerous. *Do Not make any important decisions or sign any important papers. Findings: Follow up: 1. No lifting over 20 pounds or strenuous activity for the first 24 hours after your procedure. After 24 hours there are no restrictions on your activity but you may feel fatigued for a few days. 2. After you arrive home you may have a light meal and return to your normal diet as you can tolerate it without feeling sick to your stomach. 3. You may have a bloated, gaseous feeling in your belly (abdomen) after a colonoscopy. Passing gas and belching will help. Walking or lying down on your left side with your knees flexed may relieve the discomfort. Call the office at [phone] (Office) or [phone] (Hospital) right away if you notice any of the following: a.Vomiting of blood or ?coffee ground stools?. b.Rectal bleeding 1Tbsp, blood clots or continuous bleeding. c.Severe belly (abdominal) pain. d.A hard distended belly (abdomen) and an inability to pass gas. 4. Please don?t expect to have a normal BM (bowel movement) for 2-3 days after your procedure. 5. If there are questions regarding the findings of your procedure, please contact your doctor 6. If you are unable to contact your doctor with a problem, contact the hospital at [phone]. 7. Continue all your regular medications unless directed otherwise. I understand the above instructions and have no questions. Signature of Patient or Adult Escort Name of Responsible Adult Escort Signature of Nurse Date/Time Activity:: see above Diet:: see above Discharge Orders Discharge Orders: Discharge Order (Routine); Ordered 07/30/22 Ordered By: Maliha Chan
--- NOTE | 2022-07-30 21:54 | PDOC.DSDIS_ITS ---
Discharge Plan Disposition Patient Disposition: HOME Condition: Good Discharge Details Reason For Visit: colon scope Attending Provider: Maliha Chan Primary Care Provider: Suzy Hines Home Meds and New Rx's Prescriptions: Continued potassium chloride 20 mEq tablet extended release 20 meq PO BID Qty: 180 3RF lisinopril 30 mg tablet 30 mg PO DAILY Qty: 90 3RF amlodipine 10 mg tablet 10 mg PO DAILY Qty: 90 3RF Rx Instructions: hydrochlorothiazide 12.5 mg tablet 12.5 mg PO QAM Qty: 90 3RF atorvastatin 20 mg tablet 20 mg PO QPM Qty: 90 3RF Discontinued bisacodyl [Dulcolax (bisacodyl)] 5 mg tablet,delayed release (DR/EC) 5 mg PO ONCE Qty: 4 0RF Rx Instructions: Take according to provider's instructions for colonoscopy prep. polyethylene glycol 3350 17 gram/dose powder 17 g PO ONCE Qty: 238 0RF Rx Instructions: To be taken as directed by prescriber's office for colonoscopy prep. Discharge Instructions Additional Instructions: DSU Colonoscopy Post- Op Instructions Instructions for Everyone who is given Anesthesia: For your safety, please do the following for the next twenty-four (24) hours: *Do Not operate a motor vehicle (car, truck, motorcycle, etc.) *Do Not drink alcoholic beverages or use any recreational drugs for the first 24 hours or while taking pain medications. The medications in your body may have a reaction that can be dangerous. *Do Not make any important decisions or sign any important papers. Findings: x1 polyp Recurrence of condyloma. This was removed. My office will send a letter in 2 to 3 weeks time with the results of the pathology and when we want to repeat your colonoscopy -You have rectal packing in place. This will pass/fall out on its own and you do not have to remove it. -Alternate Tylenol and ibuprofen for discomfort. -Soak in a tub of warm water as needed for rectal discomfort. And after bowel movement for 1 to 2 weeks. Follow up: Follow-up in the office in 6 months time for repeat rectal exam 1. No lifting over 20 pounds or strenuous activity for the first 24 hours after your procedure. After 24 hours there are no restrictions on your activity but you may feel fatigued for a few days. 2. After you arrive home you may have a light meal and return to your normal diet as you can tolerate it without feeling sick to your stomach. 3. You may have a bloated, gaseous feeling in your belly (abdomen) after a colonoscopy. Passing gas and belching will help. Walking or lying down on your left side with your knees flexed may relieve the discomfort. Call the office at [phone] (Office) or [phone] (Hospital) right away if you notice any of the following: a.Vomiting of blood or ?coffee ground stools?. b.Rectal bleeding 1Tbsp, blood clots or continuous bleeding. c.Severe belly (abdominal) pain. d.A hard distended belly (abdomen) and an inability to pass gas. 4. Please don?t expect to have a normal BM (bowel movement) for 2-3 days after your procedure. 5. If there are questions regarding the findings of your procedure, please contact your doctor 6. If you are unable to contact your doctor with a problem, contact the hospital at [phone]. 7. Continue all your regular medications unless directed otherwise. I understand the above instructions and have no questions. Signature of Patient or Adult Escort Name of Responsible Adult Escort Signature of Nurse Date/Time Activity:: see above Diet:: see above Discharge Orders Discharge Orders: Discharge Order (Routine); Ordered 07/30/22 Ordered By: Maliha Chan DS: Diagnosis Discharge Diagnosis (1) Anal condyloma: Status: Acute (2) Adenomatous polyps: Status: Acute
--- NOTE | 2022-07-30 21:55 | W.COLOREPORT ---
Colonoscopy Report Date of procedure: 07/31/22 Pre-op diagnosis general: hx of polyps and anal condyloma Post-op diagnosis procedure note: other (Polyp at 20 cm. Rectal condyloma) Procedure: Colonoscopy and polypectomy . Fulguration of anal condyloma Surgeon: Maliha Chan Anesthesia Type: General:No Airway Estimated blood loss (mL): 2 Pathology: other Complications: None Disposition: same day Prep: Miralax/Dulcolax Retraction Time: 15 Procedure Description: After informed consent was obtained the patient was taken to the procedure room and placed in a left decubitous position. Monitors were applied and a time out was done. The patients name, date of , procedure, allergies to medications and metal in their body was reviewed. The patient was then sedated. Once sedated and comfortable a rectal exam was done. External exam was normal. Internal exam revealed a normal sphincter tone and no palpable masses. The prostate no masses The scope was then introduced and retrofelexed. No internal hemorrhoids were identified. The scope was then advanced to the cecum no difficulty. The TI and appendiceal orifice were identified. The prep was BB PS 3 in all segments for a total of 9. The scope was then slowly retracted over 10 minutes back into the rectum. Polyps were removed at he had a pedunculated 0.75 cm polyp at 20 cm. This is removed with 2 bites of the cold forceps. All specimen is retrieved and nose bleeding is noted. At approximately the a 5 o'clock position he had 2 groupings of anal condyloma. These were excised and the base fulgurated using electrocautery. They were each anesthetized with 2 cc of 1% Marcaine with epi. They will be sent for pathologic evaluation.. The scope was removed and the patient was woken up and taken back to Same day surgery in stable condition. The patient tolerated the procedure well and there were no immediate complications. Follow up: The patient should follow up in 6 months time for repeat rectal evaluation. Unless they develop changes in bowel habits or other new gastrointestinal complaints. My office will send him a letter with the results of the pathology
--- NOTE | 2022-07-31 06:48 | W.ANESPRE ---
General Info Height: 5 ft 7.5 in Weight: 131.542 kg Body Mass Index (BMI): 44.7 Surgical Procedure: Operation Date: 07/31/22 08:20 Proposed Procedure Side Surgeon p Colonoscopy Possible Fulgeration Anal Condyloma Maliha Chan, Meds Allergies and Home Medications Allergies Allergy/AdvReac Type Severity Reaction Status Date / Time No Known Allergies Allergy Verified 07/30/22 12:03 Home Medication Medication Instructions Recorded amlodipine 10 mg tablet 10 mg PO DAILY #90 tabs 04/19/22 atorvastatin 20 mg tablet 20 mg PO QPM #90 tabs 04/19/22 hydrochlorothiazide 12.5 mg tablet 12.5 mg PO QAM #90 tabs 04/19/22 lisinopril 30 mg tablet 30 mg PO DAILY #90 tabs 04/19/22 potassium chloride 20 mEq 20 meq PO BID #180 tabs 04/19/22 tablet,extended release Current Visit Medications: Current Medications Generic Name Dose Route Start Last Admin Trade Name Freq PRN Reason Stop Dose Admin Hyoscyamine Sulfate 0.125 mg 07/30/22 21:50 Hyoscyamine 0.125 Mg Sl/Oral/Chew SL DIRECTED PRN Ringer's Solution 1,000 mls @ 80 mls/hr 07/31/22 06:00 IV 08/29/22 23:59 INFUSION [facility] IV Miscellaneous Supplies 1 each 07/31/22 06:00 Iv Access IV 08/29/22 23:59 DIRECTED CLARITZA Ondansetron HCl 4 mg 07/30/22 21:50 Ondansetron 4 Mg/2 Ml Vial IVP Q4H PRN PRN Nausea / Vomiting Sodium Chloride 0 ml 07/31/22 06:00 Normal Saline Flush 10 Ml Syr IV 08/29/22 23:59 PRN PRN Sodium Chloride 0 ml 07/31/22 06:00 Normal Saline 10 Ml Vial IJ 08/29/22 23:59 DIRECTED PRN Sterile Water 0 ml 07/31/22 06:00 Water,Injection,Sterile 10 Ml Vial IJ 08/29/22 23:59 DIRECTED PRN PFSH Active Problems Active Problems: Problem Status Onset Code Morbid (severe) obesity due to excess calories E66.01 Hyperlipidemia E78.5 Anal condyloma A63.0 Adenomatous polyps D36.9 Diverticula of colon K57.30 Mass of right lobe of liver R16.0 Colon polyp, hyperplastic ~05/2021 K63.5 Serrated adenoma of colon ~05/2021 D12.6 Tubular adenoma ~05/2021 D36.9 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 Condyloma acuminatum ~05/2021 A63.0 Seasonal allergies J30.2 Hypokalemia E87.6 SRINIVASA on CPAP G47.33, Z99.89 Feeling grief F43.21 Skin cancer screening Z12.83 Colon cancer screening Z12.11 Essential hypertension I10 Annual physical exam Z00.00 Medical History Medical History Bleeding external hemorrhoids Fracture, ankle Patient new to facility Surgical History Surgical History History of colonoscopy (~05/2021) Status post ORIF of fracture of ankle Tobacco Smoking/Tobacco Use Status: Former Tobacco Use Passive smoking exposure: Yes Second hand exposure: Yes Alcohol Alcohol Intake: current Alcohol intake frequency: holidays/special occasions only Alcohol type: beer Substance Use Substance use: Rarely Substance use type: marijuana Counseling provided: none Vital Signs and Lab Results Lab Results Blood Type / Crossmatch: No Data to Display Complete Blood Count: No Data to Display Complete Metabolic Panel: No Data to Display Liver Function Panel: No Data to Display Coagulation Panel: No Data to Display Cardiac Panel: No Data to Display Arterial Blood Gas: No Data to Display Venous Blood Gas: No Data to Display Pancreas Panel: No Data to Display Thyroid Panel: No Data to Display Infectious Disease: No Data to Display Blood Cultures: No Data to Display Toxicology Panel: No Data to Display Imaging and Studies Imaging and Studies Study information below may be from another EMR and interpreted by another provider. Please see original notes in EMR for more complete details. Echocardiogram Summary: 06/22/21: Left Ventricle : The left ventricle is normal size. The left ventricular systolic function is normal. The left ventricular ejection fraction is within the normal range. Mild concentric left ventricular hypertrophy. There is normal LV segmental wall motion. The left ventricular diastolic function is normal. LVEF is 60-65%. Right Ventricle : The right ventricle is normal size. The right ventricular systolic function is normal. Atria : The left atrium size is normal. The right atrium size is normal. Tricuspid Valve : The tricuspid valve is normal in structure. Trace tricuspid regurgitation. Unable to assess PA pressure. There is no tricuspid valve stenosis. Anesthesia Assessment and Plan Anesthesia History Personal History: No History of Anesthesia Complications Family History: No Family History of Anesthesia Complications Exercise Tolerance Exercise Tolerance: Metabolic Equivalents>4 Pertinent Negatives Pertinent Negatives: No Symptoms of GERD Cardiac & Pulmonary Exam Cardiac Exam: Normal S1/S2 Heart Sounds Pulmonary Exam: Clear Bilateral Breath Sounds Implantable Cardiac Device Does patient have a Pacemaker or an ICD?: No Airway Exam Known Difficult Airway: No Mallampati Class: 3 Mouth Opening: Normal (> 3cm) Thyromental Distance: Less than 3 cm Neck Range of Motion: Full ROM Neck Circumference: Thick Teeth Condition: Normal Dentition ASA Classification ASA Score: ASA 3 Emergency Case?: No NPO Status NPO Status: NPO Clears >2 hours, Solids >8 hours Anesthesia Plan Resuscitation Status: Full Code Anesthesia Technique: General Anesthesia Airway Planned: Natural Airway Monitors Used: Standard Monitors Preoperative Comments:: Preoperative Comments:: 51 yo male for condyloma removal. Hx of HTN (amlodipine, hydrochlorothiazide, and lisinopril), and increased BMI.
[2022-07-31 07:20] VITALS: BP 143/81; PULSE 74; RESP 18; TEMP 36.4; O2SAT 97
[2022-07-31] MEDS: Lactated Ringers 1,000 ML 80 ML IV (07:50)
--- NOTE | 2022-07-31 08:01 | ANES.PREOP_ITS ---
General Info Date of Service Date Performed: 07/31/22 Height: 5 ft 7.5 in Weight: 130.3 kg Body Mass Index (BMI): 44.3 Surgical Procedure: Operation Date: 07/31/22 08:20 Proposed Procedure Side Surgeon p Colonoscopy Possible Fulgeration Anal Condyloma Maliha Chan, Meds Allergies and Home Medications Allergies Allergy/AdvReac Type Severity Reaction Status Date / Time No Known Allergies Allergy Verified 07/31/22 07:40 Home Medication Medication Instructions Recorded amlodipine 10 mg tablet 10 mg PO DAILY #90 tabs 04/19/22 atorvastatin 20 mg tablet 20 mg PO QPM #90 tabs 04/19/22 hydrochlorothiazide 12.5 mg tablet 12.5 mg PO QAM #90 tabs 04/19/22 lisinopril 30 mg tablet 30 mg PO DAILY #90 tabs 04/19/22 potassium chloride 20 mEq 20 meq PO BID #180 tabs 04/19/22 tablet,extended release Current Visit Medications: Current Medications Generic Name Dose Route Start Last Admin Trade Name Moq PRN Reason Stop Dose Admin Hyoscyamine Sulfate 0.125 mg 07/30/22 21:50 Hyoscyamine 0.125 Mg Sl/Oral/Chew SL DIRECTED PRN Ringer's Solution 1,000 mls @ 80 mls/hr 07/31/22 06:00 07/31/22 07:50 IV 08/29/22 23:59 80 mls/hr INFUSION CLARITZA Administration IV Miscellaneous Supplies 1 each 07/31/22 06:00 Iv Access IV 08/29/22 23:59 DIRECTED CLARITZA Ondansetron HCl 4 mg 07/30/22 21:50 Ondansetron 4 Mg/2 Ml Vial IVP Q4H PRN PRN Nausea / Vomiting Sodium Chloride 0 ml 07/31/22 06:00 Normal Saline Flush 10 Ml Syr IV 08/29/22 23:59 PRN PRN Sodium Chloride 0 ml 07/31/22 06:00 Normal Saline 10 Ml Vial IJ 08/29/22 23:59 DIRECTED PRN Sterile Water 0 ml 07/31/22 06:00 Water,Injection,Sterile 10 Ml Vial IJ 08/29/22 23:59 DIRECTED PRN PFSH Active Problems Active Problems: Problem Status Onset Code Morbid (severe) obesity due to excess calories E66.01 Hyperlipidemia E78.5 Anal condyloma 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 Adenomatous polyps D36.9 Diverticula of colon K57.30 Mass of right lobe of liver R16.0 Colon polyp, hyperplastic ~05/2021 K63.5 Serrated adenoma of colon ~05/2021 D12.6 Tubular adenoma ~05/2021 D36.9 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 Condyloma acuminatum ~05/2021 A63.0 Seasonal allergies J30.2 Hypokalemia E87.6 SRINIVASA on CPAP G47.33, Z99.89 Feeling grief F43.21 Skin cancer screening Z12.83 Colon cancer screening Z12.11 Essential hypertension I10 Annual physical exam Z00.00 Medical History Medical History Bleeding external hemorrhoids Fracture, ankle Patient new to facility Surgical History Surgical History History of colonoscopy (~05/2021) Status post ORIF of fracture of ankle Tobacco Smoking/Tobacco Use Status: Former Tobacco Use Passive smoking exposure: No Second hand exposure: Yes Alcohol Alcohol Intake: current Alcohol intake frequency: holidays/special occasions only Alcohol type: beer Substance Use Substance use: Rarely Substance use type: marijuana Counseling provided: none Details: last use about 6 months ago Vital Signs and Lab Results Vital Signs Most Recent Vital Signs in EMR: Most Recent Vital Signs Temp Pulse Resp BP Pulse Ox 36.4 C L 74 18 143/81 H 97 07/31/22 07:20 07/31/22 07:20 07/31/22 07:20 07/31/22 07:20 07/31/22 07:20 Lab Results Blood Type / Crossmatch: No Data to Display Complete Blood Count: No Data to Display Complete Metabolic Panel: No Data to Display Liver Function Panel: No Data to Display Coagulation Panel: No Data to Display Cardiac Panel: No Data to Display Arterial Blood Gas: No Data to Display Venous Blood Gas: No Data to Display Pancreas Panel: No Data to Display Thyroid Panel: No Data to Display Infectious Disease: No Data to Display Blood Cultures: No Data to Display Toxicology Panel: No Data to Display Imaging and Studies Imaging and Studies Study information below may be from another EMR and interpreted by another provider. Please see original notes in EMR for more complete details. Echocardiogram Summary: 06/22/21: Left Ventricle : The left ventricle is normal size. The left ventricular systolic function is normal. The left ventricular ejection fraction is within the normal range. Mild concentric left ventricular hypertrophy. There is normal LV segmental wall motion. The left ventricular diastolic function is normal. LVEF is 60-65%. Right Ventricle : The right ventricle is normal size. The right ventricular sys tolic function is normal. Atria : The left atrium size is normal. The right atrium size is normal. Tricuspid Valve : The tricuspid valve is normal in structure. Trace tricuspid regurgitation. Unable to assess PA pressure. There is no tricuspid valve stenosis. Anesthesia Assessment and Plan Anesthesia History Personal History: No History of Anesthesia Complications Family History: No Family History of Anesthesia Complications Exercise Tolerance Exercise Tolerance: Metabolic Equivalents>4 Cardiac & Pulmonary Exam Cardiac Exam: Normal S1/S2 Heart Sounds Pulmonary Exam: Clear Bilateral Breath Sounds Implantable Cardiac Device Does patient have a Pacemaker or an ICD?: No Airway Exam Known Difficult Airway: No Mallampati Class: 3 Mouth Opening: Normal (> 3cm) Thyromental Distance: Less than 3 cm Neck Range of Motion: Full ROM Neck Circumference: Thick Teeth Condition: Normal Dentition ASA Classification ASA Score: ASA 3 Emergency Case?: No NPO Status NPO Status: NPO Clears >2 hours, Solids >8 hours Anesthesia Plan Resuscitation Status: Full Code Anesthesia Technique: General Anesthesia Airway Planned: Natural Airway Monitors Used: Standard Monitors
[2022-07-31 08:04] VITALS: BMI 44.3
--- NOTE | 2022-07-31 08:40 | BOWEL_PTH ---
PATIENT: Froy Aguilar LOC: [facility] U#:[id number] AGE/SX: 52/M ROOM: RE07/31/[address]: Maliha Chan : 1970 BED: DIS: 07/31/2022 SPEC #: [id number] RECD: 07/31/22 12:40 STATUS: AMY REQ #: [id number] MYA: 07/31/22 08:[address]: Maliha Chan DEPT: Surgical Specimen RECD BY: Charisma Pepper ENTERED: 07/31/22 12:43 SP TYPE: Bowel OTHR DR: Suzy Hines APRN Tissues: 1 - BIOPSY BOWEL 2 - BIOPSY BOWEL Procedures: GROSS AND MICRO LEVEL 4 Comments: [id number]
[2022-07-31] MEDS: Lidocaine 1% Multi-Dose W/EPI 1/100,000 50 ML VIAL (09:06)
[2022-07-31 09:15] VITALS: BP 118/68; PULSE 66; RESP 20; TEMP 36.1; O2SAT 95
[2022-07-31] MEDS: Ondansetron O.D.T. 4 MG TABEF PO (09:44)
[2022-07-31] MEDS: Ibuprofen 600 MG TAB PO (09:44)
[2022-07-31 09:45] VITALS: BP 144/75; PULSE 56; RESP 18; TEMP 36.5; O2SAT 97
--- NOTE | 2022-07-31 10:05 | W.ANESPOSTOP ---
Postoperative Evaluation Date, Time and Location Date Performed: 07/31/22 Time Performed: 10:05 Patient Location: Day Surgery Unit Vital Signs Most Recent Imported Vital Signs: Most Recent Vital Signs Temp Pulse Resp BP Pulse Ox 36.5 C 56 L 18 144/75 H 97 07/31/22 09:45 07/31/22 09:45 07/31/22 09:45 07/31/22 09:45 07/31/22 09:45 Pain Score Most Recent Pain Score: Most Recent Pain Score Pain Level 1 07/31/22 09:45 Assessment Mental Status: Awake (Alert & Oriented to Patient Baseline) Airway and Respiratory Function: Patent airway with normal (patient baseline) respiratory exam Cardiovascular Function: Hemodynamically Stable Hydration Status: Adequately Hydrated Nausea & Vomiting: No Nausea or Vomiting Pain: Pain is tolerable per patient Peripheral Nerve Block: Patient did not receive a nerve block
== END 2022-07-31 10:20 | disposition home or self-care (01) ==
PROVIDERS: Visit Provider Surgery
PROC: 0DJD8ZZ Inspection of Lower Intestinal Tract, Via Natural or Artificial Opening Endoscopic (ICD-10-PCS; CPT 45378; principal; 2022-07-31 08:15)
DX: A63.0 Anogenital (venereal) warts (principal); K63.5 Polyp of colon; Z86.010 Personal history of colon polyps; K62.0 Anal polyp
CPT/HCPCS: 46922; 45380; 88305; J2704

== ENCOUNTER 2023-04-26 01:06 | Outpatient (CLI) | payer BC, SELFPAY ==
[2023-04-26 13:19] LABS: ALT 37 U/L (16-63); AST 22 U/L (15-37); Albumin 3.6 g/dL (3.4-5.0); Alkaline Phosphatase 52 U/L (46-116); Anion Gap 5.2 mmol/L (3-11); BUN 9 mg/dL (7-18); Bilirubin, Total 0.5 mg/dL (0.2-1.0); CO2 30.8 mmol/L (21.0-32.0); CREATININE 0.8 mg/dL (0.70-1.30); Calcium 8.2 mg/dL (8.5-10.1); Calculated LDL 60 mg/dL (<100); Chloride 102 mmol/L (98-107); Cholesterol 119 mg/dL (<200); Estimated GFR 104.51 (mL/min/1.73m2); Glucose 124 mg/dL (74-106); HDL Cholesterol 39 mg/dL (40-60); Sodium 138 mmol/L (136-145); Total Protein 7.3 g/dL (6.4-8.2); Triglyceride 100 mg/dL (<150)
== END 2023-04-26 01:07 | disposition home or self-care (01) ==
LOC: LOS 01:06
PROVIDERS: PCP Nurse Practitioner Family; Visit Provider Nurse Practitioner Family
DX: Z00.00 Encounter for general adult medical examination without abnormal findings (principal); E78.5 Hyperlipidemia, unspecified
CPT/HCPCS: 36415; 80053; 80061

== ENCOUNTER 2023-08-30 18:18 | Outpatient (REF) | payer BC, SELFPAY ==
[2023-08-30 13:19] LABS: Potassium 3.4 mmol/L (3.5-5.1)
== END 2023-08-30 18:19 | disposition home or self-care (01) ==
LOC: LBN 18:18
PROVIDERS: PCP Nurse Practitioner Family; Visit Provider Nurse Practitioner Family
DX: E87.6 Hypokalemia (principal)
CPT/HCPCS: 84132

== ENCOUNTER 2024-05-18 18:31 | Outpatient (REF) | payer BC, SELFPAY ==
[2024-05-18 13:11] LABS: Anion Gap 8.4 mmol/L (3-11); BUN 14 mg/dL (7-18); CO2 34.6 mmol/L (21.0-32.0); Chloride 100 mmol/L (98-107); Estimated GFR 88.33 (mL/min/1.73m2); Glucose 145 mg/dL (74-106); Potassium 3.1 mmol/L (3.5-5.1); Sodium 143 mmol/L (136-145)
[2024-05-18 23:55] LABS: HIV-1/2 Ag & Ab Screen Negative (Negative)
[2024-05-18 23:56] LABS: Hepatitis C Ab w Rflx HCV PCR Negative (Negative)
[2024-06-24 12:47] LABS: Fungal Culture & Smear See Comments
== END 2024-05-18 18:32 | disposition home or self-care (01) ==
LOC: LBN 18:31
PROVIDERS: PCP Nurse Practitioner Family; Visit Provider Family Medicine
DX: I10 Essential (primary) hypertension (principal); Z11.59 Encounter for screening for other viral diseases; Z11.4 Encounter for screening for human immunodeficiency virus [HIV]; B35.1 Tinea unguium
CPT/HCPCS: 80048; 86803; 87102; 87206; 87389

== ENCOUNTER 2024-09-07 09:50 | Day surgery (SDC) | payer BC, SELFPAY ==
--- NOTE | 2024-09-06 10:39 | W.PM.DSUDISC ---
Date of service: 09/07/24 Time of Service: 12:13 Discharge Plan Disposition Patient Disposition: Home Condition: Good Discharge Details Reason For Visit: screening colonoscopy Attending Provider: Jason Solano Primary Care Provider: Efren Luis Home Meds and New Rx's Prescriptions: Continued chlorthalidone 25 mg tablet 25 mg PO DAILY Qty: 90 3RF lisinopril 40 mg tablet 40 mg PO DAILY Qty: 90 4RF clonidine HCl 0.1 mg tablet 0.1 mg PO BID Qty: 180 4RF atorvastatin 20 mg tablet 20 mg PO QPM Qty: 90 3RF amlodipine 10 mg tablet 10 mg PO DAILY Qty: 90 3RF Rx Instructions: potassium chloride 20 mEq tablet extended release 40 meq PO BID Qty: 360 3RF bupropion HCl 300 mg tablet extended release 24 hr 300 mg PO QAM Qty: 90 4RF ketoconazole 2 % cream 1 applic topical BID Qty: 60 3RF Rx Instructions: Apply to affected twice daily for up to 48 weeks or until clinical response is noted Discontinued polyethylene glycol 3350 17 gram/dose powder 238 g PO ONCE Qty: 238 0RF Rx Instructions: take per colonoscopy instructions bisacodyl [Dulcolax (bisacodyl)] 5 mg tablet,delayed release (DR/EC) 5 mg PO ONCE Qty: 4 0RF Rx Instructions: take per colonoscopy instructions Discharge Instructions Instructions: Colon polyps, Diverticulosis Additional Instructions: Froy, was very nice meeting you today, and I hope you are comfortable during the procedure. I did find and removed, single polyp today. It was quite small, and to the naked eye, none of the features appear particularly worrisome. This will be sent off to the pathologist for their review, and once we know the nature of this polyp, then will be better equipped offer recommendations for the timing of your next colonoscopy. Those results usually take about a week or so, but as soon as the office has them, we will be in touch. Incidentally, he also have a little bit of diverticulosis. Diverticula are little weak spots in the wall of the colon. They typically accumulate as we get older. Maintaining a diet that is rich in fiber, staying well-hydrated, and avoiding constipation are probably the main ways to best take care of it. I have attached a little bit of information here about diverticulosis as well as colorectal polyps. If you have any questions before we get the results, please do not hesitate to ask. 1. If tolerated, consume a soft, low fiber diet for 1-2 days. 2. Do not drive, drink alcohol, operate machinery, make critical decisions, or do activities that require coordination or balance for 24 hours. 3. Because air was put into your colon during the procedure, expelling air from your rectum (passing gas or farting) is normal. 4. You may not have a bowel movement for 1-3 days because of the colonoscopy prep. This is normal. 5. Go directly to the emergency room if you notice any of the following: Develop chills (warm to touch), or if you have a thermometer and your temperature is above 101 Difficulty breathing or difficultly swallowing Persistent vomiting Severe abdominal pain, other than gas cramps Severe chest pain Black, tarry stools Any bleeding ? exceeding one tablespoon 6. Call your physician if the site where your intravenous was started becomes red, swollen, painful, and warm to touch. 7. Your physician has reviewed your pre-procedure medications. Please continue to take those medications as previously ordered. You will be given specific information/education regarding any changes to your medications before leaving. Activity:: Activity as Tolerated Diet:: As Tolerated Discharge Orders Discharge Orders: Discharge Order (Routine); Ordered 09/06/24 Ordered By: Jason Solano DS: Diagnosis Discharge Diagnosis (1) Encounter for screening colonoscopy: Status: Acute Asessment and Plan: Follow-up on polypectomy results
--- NOTE | 2024-09-06 10:40 | W.COLOREPORT ---
Date of service: 09/07/24 Time of Service: 12:15 Colonoscopy Report Date of procedure: 09/07/24 Pre-op diagnosis general: screening colonoscopy Post-op diagnosis procedure note: other (Diverticulosis, colon polyps) Procedure: colonoscopy with polypectomy Surgeon: Jason Solano Anesthesia Type: General:No Airway Estimated blood loss (mL): 5 Pathology: other (0.25 cm pedunculated polyp at 20 cm) Complications: None Disposition: same day Indications: Froy is a 54 year old man who needs a screening colonoscopy Prep: Miralax/Dulcolax Procedure Start Time: 11:55 Procedure End Time: 12:10 Retraction Time: 12 Findings: Sigmoid diverticulosis, 0.25 cm polyp at 20 cm Procedure Description: After the induction of anesthesia, and with the patient in left lateral decubitus position, I began by performing an external anorectal exam.? Perineum and skin were normal, as was the anal verge.? There was no evidence of external hemorrhoids.? Next, I performed a digital rectal exam.? I did not appreciate any abnormal findings.? I did not see any active signs of condyloma. Next, I advanced a colonoscope into the rectal vault.? I performed retroflexion.? This appeared normal.? Using insufflation, I then advanced the colonoscope beyond the rectal folds and into the sigmoid colon before advancing towards the cecum.? There is sigmoid diverticulosis.? The scope was noted to be in the cecum by identification of the ileocecal valve and appendiceal orifice.? I then began withdrawing the colonoscope using repeated irrigation as necessary for full evaluation of the colonic mucosa. ?Once the scope was withdrawn to the level of the rectum, great care was taken to examine portions of the rectal folds.? Around 20 cm from the anal verge was a 0.25 cm slightly pedunculated polyp. This was removed with cold forceps with minimal bleeding. Finally, the scope was withdrawn and the patient was brought to the same-day surgery recovery unit as the anesthetic wore off. ?The findings and instructions were shared with the patient prior to discharge. [place] Bowel Prep [place] Bowel Prep Right Colon: 2 Transverse Colon: 3 Total Score: 5
[2024-09-07 10:00] VITALS: BP 143/76; PULSE 64; RESP 18; TEMP 36.6; O2SAT 96
[2024-09-07] MEDS: Lactated Ringers 1,000 ML 80 ML IV (10:25)
--- NOTE | 2024-09-07 10:40 | ANES.PREOP_ITS ---
General Info Date of Service Date Performed: 09/07/24 Height: 5 ft 7 in Weight: 126.2 kg Body Mass Index (BMI): 43.5 Surgical Procedure: Operation Date: 09/07/24 11:20 Proposed Procedure Side Surgeon p Colonoscopy Possible Fulgeration of Anal Condyloma Jason Solano MD Meds Allergies and Home Medications Allergies Allergy/AdvReac Type Severity Reaction Status Date / Time No Known Allergies Allergy Verified 08/24/24 10:01 Home Medication ?Medication ?Instructions ?Recorded atorvastatin 20 mg tablet 20 mg PO QPM #90 tabs 11/08/23 amlodipine 10 mg tablet 10 mg PO DAILY #90 tabs 11/25/23 clonidine HCl 0.1 mg tablet 0.1 mg PO BID #180 tabs 12/09/23 bupropion HCl 300 mg 24 hr tablet, 300 mg PO QAM #90 tabs 01/23/24 extended release potassium chloride 20 mEq 40 meq (2 x 20 mEq) PO BID #360 01/23/24 tablet,extended release tabs chlorthalidone 25 mg tablet 25 mg PO DAILY #90 tabs 05/18/24 lisinopril 40 mg tablet 40 mg PO DAILY #90 tabs 05/18/24 ketoconazole 2 % topical cream 1 applic topical BID #60 grams 06/24/24 Current Visit Medications: Current Medications Generic Name Dose Route Start Last Admin Trade Name Freq PRN Reason Stop Dose Admin Ringer's Solution 1,000 mls @ 80 mls/hr 09/07/24 06:00 09/07/24 10:25 IV 09/07/24 23:59 80 mls/hr INFUSION CLARITZA Administration IV Miscellaneous Supplies 1 each 09/07/24 06:00 Iv Access IV 09/07/24 23:59 DIRECTED CLARITZA Ondansetron HCl 4 mg 09/06/24 10:41 Ondansetron 4 Mg/2 Ml Vial IVP 10/06/24 10:40 Q4H PRN PRN Nausea / Vomiting Sodium Chloride 0 ml 09/07/24 06:00 Normal Saline Flush 10 Ml Syr IV 09/07/24 23:59 PRN PRN Sodium Chloride 0 ml 09/07/24 06:00 Normal Saline 10 Ml Vial IJ 09/07/24 23:59 DIRECTED PRN Sterile Water 0 ml 09/07/24 06:00 Water,Injection,Sterile 10 Ml Vial IJ 09/07/24 23:59 DIRECTED PRN PFSH Active Problems Active Problems: Problem Status Onset Code Nail disorder Acute L60.9 Seasonal affective disorder Acute F33.8 Morbid (severe) obesity due to excess calories Acute E66.01 Hyperlipidemia Chronic E78.5 Anal condyloma Acute ~07/31/22 A63.0 Adenomatous polyps Acute D36.9 Diverticula of colon Acute K57.30 Mass of right lobe of liver Resolved R16.0 Colon polyp, hyperplastic Acute ~05/2021 K63.5 Serrated adenoma of colon Acute ~05/2021 D12.6 Tubular adenoma Acute ~07/31/22 D36.9 Tubulovillous adenoma Acute ~05/2021 D36.9 Condyloma acuminatum Acute ~05/2021 A63.0 Seasonal allergies Acute J30.2 Hypokalemia Chronic E87.6 SRINIVASA on CPAP Chronic G47.33, Z99.89 Essential hypertension Acute I10 Annual physical exam Acute Z00.00 Medical History Medical History Pain of left calf Bleeding external hemorrhoids Fracture, ankle Feeling grief Skin cancer screening Colon cancer screening Patient new to facility Surgical History Surgical History Status post ORIF of fracture of ankle History of colonoscopy (~07/31/22) 05/2021 Tobacco Smoking/Tobacco Use Status: Former Tobacco Use Passive smoking exposure: No Second hand exposure: Yes Alcohol Alcohol Intake: current Alcohol intake frequency: holidays/special occasions only Alcohol type: beer Substance Use Substance use: Rarely Substance use type: marijuana Counseling provided: none Details: last use about 6 months ago Vital Signs and Lab Results Vital Signs Most Recent Vital Signs in EMR: Most Recent Vital Signs Temp Pulse Resp BP Pulse Ox 36.6 C 64 18 143/76 H 96 09/07/24 10:00 09/07/24 10:00 09/07/24 10:00 09/07/24 10:00 09/07/24 10:00 Lab Results Blood Type / Crossmatch: No Data to Display Complete Blood Count: No Data to Display Complete Metabolic Panel: No Data to Display Liver Function Panel: No Data to Display Coagulation Panel: No Data to Display Cardiac Panel: No Data to Display Arterial Blood Gas: No Data to Display Venous Blood Gas: No Data to Display Pancreas Panel: No Data to Display Thyroid Panel: No Data to Display Infectious Disease: No Data to Display Blood Cultures: No Data to Display Toxicology Panel: No Data to Display Imaging and Studies Imaging and Studies Study information below may be from another EMR and interpreted by another provider. Please see original notes in EMR for more complete details. Echocardiogram Summary: 06/22/21: Left Ventricle : The left ventricle is normal size. The left ventricular systolic function is normal. The left ventricular ejection fraction is within the normal range. Mild concentric left ventricular hypertrophy. There is normal LV segmental wall motion. The left ventricular diastolic function is normal. LV EF is 60-65%. Right Ventricle : The right ventricle is normal size. The right ventricular systolic function is normal. Atria : The left atrium size is normal. The right atrium size is normal. Tricuspid Valve : The tricuspid valve is normal in structure. Trace tricuspid regurgitation. Unable to assess PA pressure. There is no tricuspid valve stenosis. Anesthesia Assessment and Plan Anesthesia History Personal History: No History of Anesthesia Complications Family History: No Family History of Anesthesia Complications Exercise Tolerance Exercise Tolerance: Metabolic Equivalents>4 Pertinent Negatives Pertinent Negatives: No Symptoms of GERD Cardiac & Pulmonary Exam Cardiac Exam: Normal S1/S2 Heart Sounds Pulmonary Exam: Clear Bilateral Breath Sounds Implantable Cardiac Device Does patient have a Pacemaker or an ICD?: No Airway Exam Known Difficult Airway: No Mallampati Class: 3 Mouth Opening: Normal (> 3cm) Thyromental Distance: Less than 3 cm Neck Range of Motion: Full ROM Neck Circumference: Thick Teeth Condition: Normal Dentition ASA Classification ASA Score: ASA 3 Emergency Case?: No NPO Status NPO Status: NPO Clears >2 hours, Solids >8 hours Anesthesia Plan Resuscitation Status: Full Code Anesthesia Technique: General Anesthesia Airway Planned: Natural Airway Monitors Used: Standard Monitors Preoperative Comments:: 54 yo male for colonoscopy and possible condyloma removal. Hx of HTN (amlodipine, hydrochlorothiazide, and lisinopril), and increased BMI. Plan GA natural airway.
[2024-09-07 10:42] VITALS: BMI 43.5
--- NOTE | 2024-09-07 12:07 | BOWEL_PTH ---
PATIENT: Froy Aguilar LOC: [facility] U#:[id number] AGE/SX: 54/M ROOM: RE09/07/[address]: Jason Solano MD : [id number] BED: DIS: 09/07/2024 SPEC #: [id number] RECD: 09/07/24 13:03 STATUS: AMY REQ #: [id number] MYA: 09/07/24 12:[address]: Jason Solano DEPT: Surgical Specimen RECD BY: Charisma Pepper ENTERED: 09/07/24 13:04 SP TYPE: Bowel OTHR DR: Efren Nino DNP Tissues: 1 - BIOPSY BOWEL Procedures: GROSS AND MICRO LEVEL 4 Comments: [id number]
[2024-09-07 12:15] VITALS: BP 123/69; PULSE 63; RESP 16; TEMP 36.6; O2SAT 94
--- NOTE | 2024-09-07 12:20 | W.ANESPOSTOP ---
Postoperative Evaluation Date, Time and Location Date Performed: 09/07/24 Time Performed: 12:20 Patient Location: Day Surgery Unit Vital Signs Most Recent Imported Vital Signs: Most Recent Vital Signs Temp Pulse Resp BP Pulse Ox 36.6 C 64 18 143/76 H 96 09/07/24 10:00 09/07/24 10:00 09/07/24 10:00 09/07/24 10:00 09/07/24 10:00 Assessment Mental Status: Awake (Alert & Oriented to Patient Baseline) Airway and Respiratory Function: Patent airway with normal (patient baseline) respiratory exam Cardiovascular Function: Hemodynamically Stable Hydration Status: Adequately Hydrated Nausea & Vomiting: No Nausea or Vomiting Pain: Pt. Denies Any Pain Peripheral Nerve Block: Patient did not receive a nerve block
[2024-09-07 12:50] VITALS: BP 157/91; PULSE 61; RESP 16; TEMP 36.7; O2SAT 99
== END 2024-09-07 13:18 | disposition home or self-care (01) ==
LOC: SUR 09:51
PROVIDERS: PCP Nurse Practitioner Family; Visit Provider Surgery
PROC: 0DJD8ZZ Inspection of Lower Intestinal Tract, Via Natural or Artificial Opening Endoscopic (ICD-10-PCS; CPT 45378; principal; 2024-09-07 11:15)
DX: Z12.11 Encounter for screening for malignant neoplasm of colon (principal); K63.5 Polyp of colon; K57.30 Diverticulosis of large intestine without perforation or abscess without bleeding; I10 Essential (primary) hypertension; G47.33 Obstructive sleep apnea (adult) (pediatric); Z99.89 Dependence on other enabling machines and devices; E66.01 Morbid (severe) obesity due to excess calories
CPT/HCPCS: 45380; 88305; J2704

== ENCOUNTER 2025-05-19 08:18 | Outpatient (CLI) | payer BC, SELFPAY ==
[2025-05-19 12:49] LABS: ALT 32 U/L (16-63); AST 21 U/L (15-37); Albumin 4.2 g/dL (3.4-5.0); Alkaline Phosphatase 54 U/L (46-116); Anion Gap 7.0 mmol/L (3-11); BUN 20 mg/dL (7-18); Bilirubin, Total 0.7 mg/dL (0.2-1.0); CO2 33.0 mmol/L (21.0-32.0); Calcium 8.7 mg/dL (8.5-10.1); Calculated LDL 79 mg/dL (<100); Chloride 102 mmol/L (98-107); Cholesterol 149 mg/dL (<200); Estimated GFR 87.78 (mL/min/1.73m2); Glucose 126 mg/dL (74-106); HDL Cholesterol 48 mg/dL (>or=40); Potassium 3.0 mmol/L (3.5-5.1); Sodium 142 mmol/L (136-145); Total Protein 7.8 g/dL (6.4-8.2); Triglyceride 114 mg/dL (<150)
[2025-05-19 19:33] LABS: HBs Antibody, Quant 6.4 mIU/mL (See Note); Hepatitis B Surface Antigen Negative (Negative)
== END 2025-05-19 08:19 | disposition home or self-care (01) ==
LOC: LOS 08:18
PROVIDERS: PCP Nurse Practitioner Family; Visit Provider Nurse Practitioner Family
DX: E78.2 Mixed hyperlipidemia (principal); Z11.59 Encounter for screening for other viral diseases
CPT/HCPCS: 36415; 80053; 80061; 86704; 86706; 87340